=== PATIENT | male | born 1955 | race Caucasian/White ===

== ENCOUNTER → 2017-09-22 | Outpatient (CLI) | payer BC ==
[2017-09-22 18:59] LABS: Blood Urea Nitrogen 24 mg/dL (9-20); Non-African American GFR(MDRD) >60 (>60 ml/min/1.73 sqM)
--- NOTE | 2017-09-23 09:26 | MR ---
EXAMINATION TYPE: MR brain and iac wo/w con DATE OF EXAM: 09/22/2017 COMPARISON: CT sinus 09/21/2015 HISTORY: Sudden Onset of Right side hearing loss with Ringing TECHNIQUE: Multiplanar, multisequence images of the brain and brainstem is performed without and with IV contras t, utilizing 10 mL intravenous Gadavist . FINDINGS: Diffusion weighted images demonstrate no evidence of a recent infarct or other diffusion ab normality. There is no extra-axial fluid collection or significant white matter signal abnormality. The ventricular system and cisternal spaces are normal in size and appearance, prominence of cerebro spinal fluid signal in the posterior fossa is compatible with anette cisterna magna. The brain volume is age appropriate. There is no hemorrhage or hydrocephalus. Midline structures demonstrate normal morphology. The craniocervical junction appears within normal limits. Post contrast images demonstrate no abnormal enhancement. The dural venous sinuses appear pa tent. The visualized sinuses are remarkable for inflammatory change in the right maxillary sinus grea ter than left and inflammatory change present in the ethmoid air cells and the globes are intact. IMPRESSION: No acoustic neuroma is evident. Mild sinus disease.
== END | disposition home or self-care (01) ==
LOC: RADMRIMAIN 13:00
PROVIDERS: ATTEND Otolaryngology
DX: H91.21 Sudden idiopathic hearing loss, right ear (principal); H93.3X1 Disorders of right acoustic nerve; H93.11 Tinnitus, right ear; H91.91 Unspecified hearing loss, right ear; I67.89 Other cerebrovascular disease
CPT/HCPCS: 82565; 84520; 70553; A9581

== ENCOUNTER → 2020-06-09 | Outpatient (CLI) | payer BC ==
--- NOTE | 2020-06-09 19:33 | CT ---
EXAMINATION TYPE: CT abdomen pelvis w con DATE OF EXAM: 06/09/2020 COMPARISON: None HISTORY: Parastomal hernia w/out obstruction or gangrene CT DLP: 728.80 mGycm Automated exposure control for dose reduction was used. CONTRAST: Performed with IV Contrast, patient injected with 100 mL of Isovue 300. Images obtained from the diaphragm to the floor the pelvis with IV contrast. Lung bases are clear. There is no pleural effusion. Liver spleen stomach pancreas gallbladder appear normal. Bile ducts are not dilated. There is no adrenal mass. Kidneys show satisfactory contrast opacification. There is no hydronephrosi s. Ureters are not dilated. Delayed images show normal renal excretion. There is no retroperitoneal a denopathy. Ureters are not dilated. Appendix appears normal. Bladder distends smoothly. There are surgical clips in the pelvis. Lumbar vertebra have normal alignment. There is narrowing of L4-5 and L5-S1 disc spaces with vacuum d isc. There is no compression fracture. Bony pelvis appears intact. There is colostomy in the left mid abdomen with parastomal hernia of large bowel. There is no mesenteric edema. There is no ascites or free air. There is no bowel obstruction. IMPRESSION: Parastomal hernia. No evidence of bowel obstruction. Previous surgery in the pelvis with apparent res ection of the rectosigmoid colon.
== END | disposition home or self-care (01) ==
LOC: RADCTMAIN 16:56
PROVIDERS: ATTEND Surgery
DX: K43.5 Parastomal hernia without obstruction or gangrene (principal); Z98.890 Other specified postprocedural states
CPT/HCPCS: 74177; Q9967